=== PATIENT | male | born 1975 | race African-American/Black ===

== ENCOUNTER 2016-03-13 19:02 | Emergency (ER) | payer SELFPAY ==
[~2016-03-13] VITALS: Ht 182.9 cm; Wt 98.0 kg
[~2016-03-13 19:02] MED LIST: IBUP800T23 PO
[2016-03-13 19:04] VITALS: BP 147/75; PULSE 78; RESP 18; TEMP 98.2; O2SAT 100
--- NOTE | 2016-03-13 21:05 | PD ---
HPI Chief Complaint: Dizziness Time Seen by Provider: 21:02 Travel History International Travel<30 days: No Contact w/Intl Traveler<30days: No Traveled to known affect area: No History of Present Illness HPI 41-year-old male presents to the emergency department for evaluation of episode of chest pain dizziness that occurred around 3:30 PM today. He states that he had anterior chest pain that was stabbing in nature. He states the same time, he felt dizzy like the room was spinning around him. No syncope. The patient states he vomited and then laid down. He states that all symptoms resolved at that time. Patient denies any current chest pain or dizziness. He denies any fevers. No shortness of breath. No abdominal pain. No vomiting. No recent travel or surgery. No hemoptysis. No leg edema. No history DVT or PE. He has no chronic medical problems and takes no prescribed medications. PFSH Past Medical History Arthritis: No Asthma: No Autoimmune Disease: No Blood Disorders: No Anxiety: No Depression: No Heart Rhythm Problems: No Cancer: No Cardiovascular Problems: No High Cholesterol: No Chemotherapy: No Chest Pain: No Congestive Heart Failure: No COPD: No Cerebrovascular Accident: No Diabetes: No Diminished Hearing: No Endocrine: No Gastrointestinal Disorders: Yes ([place]STON[place]) GERD: No Glaucoma: No Genitourinary: No Headaches: No Hepatitis: No Hypertension: No Immune Disorder: No Kidney Stones: No Musculoskeletal: No Neurologic: No Psychiatric: No Reproductive: No Respiratory: No Immunizations Current: Yes Migraines: No Myocardial Infarction: No Radiation Therapy: No Renal Failure: No Seizures: No Sickle Cell Disease: No Sleep Apnea: No Thyroid Disease: No Ulcer: No Tetanus Vaccination: > 5 Years Influenza Vaccination: No Past Surgical History Abdominal Surgery: No AICD: No Appendectomy: No Arteriovenous Shunt: No Cardiac Surgery: No Cholecystectomy: Yes Ear Surgery: No Endocrine Surgery: No Eye Surgery: No Genitourinary Surgery: No Gynecologic Surgery: No Insulin Pump: No Joint Replacement: No Oral Surgery: No Pacemaker: No Thoracic Surgery: No Other Surgery: Yes Social History Alcohol Use: Yes (very rare occassional) Tobacco Use: Yes Substance Use: No Allergies-Medications (Allergen,Severity, Reaction): Coded Allergies: No Known Allergies (Unverified , 03/13/16) Reported Meds & Prescriptions Reported Meds & Active Scripts Active No Active Prescriptions or Reported Medications Review of Systems Except as stated in HPI: all other systems reviewed are Neg Physical Exam Narrative GENERAL: Well-developed well-nourished male patient, ambulatory with a steady gait. Afebrile. SKIN: Warm and dry. HEAD: Normocephalic. Atraumatic ENT: Mucosa pink and moist. No erythema or exudates. No uvular edema. No uvular , palatal, or tonsillar deviation. Airway patent. Nasal turbinates appear normal without nasal blood, purulent drainage or septal hematoma. Bilateral tympanic membranes are clear without erythema or perforation. EYES: No scleral icterus. No injection or drainage. NECK: Supple, trachea midline. No JVD or lymphadenopathy. CARDIOVASCULAR: Regular rate and rhythm without murmurs, gallops, or rubs. RESPIRATORY: Breath sounds equal bilaterally. No accessory muscle use. Lungs sounds are clear to auscultation. GASTROINTESTINAL: Abdomen soft, non-tender, nondistended. MUSCULOSKELETAL: No cyanosis, or edema. BACK: Nontender without obvious deformity. No CVA tenderness. Data Data Last Documented VS Vital Signs Date Time Temp Pulse Resp B/P Pulse Ox O2 Delivery O2 Flow Rate FiO2 03/13/16 21:26 63 18 127/68 98 Room Air 03/13/16 19:04 98.2 Orders Electrocardiogram (03/13/16 21:01) Basic Metabolic Panel (Bmp) (03/13/16 21:01) Ckmb (Isoenzyme) Profile (03/13/16 21:01) Complete Blood Count With Diff (03/13/16 21:01) Magnesium (Mg) (03/13/16 21:01) Troponin I (03/13/16 21:01) Chest, Single Ap (03/13/16 21:01) Ecg Monitoring (03/13/16 21:01) Bilateral Bp Monitoring (03/13/16 21:01) Iv Access Insert/Monitor (03/13/16 21:01) Oximetry (03/13/16 21:01) Oxygen Administration (03/13/16 21:01) Sodium Chloride 0.9% Flush (Ns Flush) (03/13/16 21:15) Insulin Human Regular Inj (Novolin R Inj (03/13/16 22:00) CKMB (03/13/16 21:10) CKMB% (03/13/16 21:10) Labs Laboratory Tests Test 03/13/16 21:10 White Blood Count 9.4 TH/MM3 Red Blood Count 4.95 MIL/MM3 Hemoglobin 14.0 GM/DL Hematocrit 41.7 % Mean Corpuscular Volume 84.3 FL Mean Corpuscular Hemoglobin 28.3 PG Mean Corpuscular Hemoglobin 33.5 % Concent Red Cell Distribution Width 14.1 % Platelet Count 220 TH/MM3 Mean Platelet Volume 8.9 FL Neutrophils (%) (Auto) 51.8 % Lymphocytes (%) (Auto) 36.7 % Monocytes (%) (Auto) 7.3 % Eosinophils (%) (Auto) 3.6 % Basophils (%) (Auto) 0.6 % Neutrophils # (Auto) 4.9 TH/MM3 Lymphocytes # (Auto) 3.5 TH/MM3 Monocytes # (Auto) 0.7 TH/MM3 Eosinophils # (Auto) 0.3 TH/MM3 Basophils # (Auto) 0.1 TH/MM3 CBC Comment DIFF FINAL Differential Comment Sodium Level 140 MEQ/L Potassium Level 4.3 MEQ/L Chloride Level 106 MEQ/L Carbon Dioxide Level 26.7 MEQ/L Anion Gap 7 MEQ/L Blood Urea Nitrogen 17 MG/DL Creatinine 1.43 MG/DL Estimat Glomerular Filtration 66 ML/MIN Rate Random Glucose 88 MG/DL Calcium Level 9.0 MG/DL Magnesium Level 2.3 MG/DL Total Creatine Kinase 336 U/L Troponin I LESS THAN 0.02 NG/ML [facility] Medical Decision Making Medical Screen Exam Complete: Yes Emergency Medical Condition: Yes Medical Record Reviewed: Yes Interpretation(s) chest x-ray - CONCLUSION: No acute disease. Differential Diagnosis Vertigo versus anxiety versus chest wall pain versus ACS versus electrolyte abnormality Narrative Course 41-year-old male presents to the emergency department for evaluation of an episode of chest pain dizziness that occurred around 3:30 PM with 1 episode of vomiting. He states all symptoms resolved proximal and 2 hours later. He currently denies any symptoms. EKG shows sinus rhythm, heart rate 67, no acute ST changes. CBC, BMP, magnesium, CK, troponin, chest x-ray ordered and pending. CBC is unremarkable. BMP shows elevated creatinine 1.43. Magnesium is 2.3. CK is 336. Troponin is less than 0.02. Chest x-ray shows no acute disease. Upon reassessment, the patient is still asymptomatic. He states he feels fine at this time and would like to go home. Patient is given strict return precautions. Patient is agreeable. My attending physician, Dr. Landry, agrees with plan and disposition. The patient was discharged in stable condition with instructions, including return instructions and follow up instructions. Diagnosis Primary Impression: Vertigo Referrals: Primary Care Physician call for appointment Patient Instructions: General Instructions, Vertigo (ED) Additional Instructions: Follow-up with your primary care physician. Return to the emergency department for any acute worsening of symptoms. Med/Other Pt SpecificInfo: No Change to Meds Scripts No Active Prescriptions or Reported Meds Disposition: 01 DISCHARGE HOME Condition: Stable Belen Singh JOSE Mar 13, 2016 21:05
[2016-03-13] MEDS ORDERED: SODIUM CHLORIDE 0.9% FLUSH 5 ML FLUSH IVF PRN (21:15)
[2016-03-13 21:26] VITALS: BP 127/68; PULSE 63; RESP 18; O2SAT 98
[2016-03-13 21:49] LABS: AUTOMATED NEUTROPHIL # 4.9 TH/MM3 (1.8-7.7); BASOPHIL # 0.1 TH/MM3 (0-0.2); BASOPHIL % 0.6 % (0.0-2.0); EOSINOPHIL # 0.3 TH/MM3 (0-0.4); EOSINOPHIL % 3.6 % (0.0-4.0); HEMATOCRIT 41.7 % (39.0-51.0); HEMO FLAGS DIFF FINAL; LYMPH % 36.7 % (9.0-44.0); LYMPHOCYTE # 3.5 TH/MM3 (1.0-4.8); MEAN CELL VOLUME 84.3 FL (80.0-100.0); MEAN CORPUSCULAR HEMOGLOBIN 28.3 PG (27.0-34.0); MEAN CORPUSCULAR HGB CONC 33.5 % (32.0-36.0); MONO % 7.3 % (0.0-8.0); NEUT % 51.8 % (16.0-70.0); PLATELET COUNT 220 TH/MM3 (150-450); RED BLOOD COUNT 4.95 MIL/MM3 (4.50-5.90); RED CELL DISTRIBUTION WIDTH 14.1 % (11.6-17.2); WHITE BLOOD COUNT 9.4 TH/MM3 (4.0-11.0)
--- NOTE | 2016-03-13 21:50 | RADRPT ---
EXAM DATE/TIME: 03/13/2016 21:20 [facility] COMPARISON: No previous studies available for comparison. INDICATIONS : Lightheadedness and fever MEDICAL HISTORY : None. SURGICAL HISTORY : None. ENCOUNTER: Initial ACUITY: 1 day PAIN SCORE: 0/10 LOCATION: chest FINDINGS: A single view of the chest demonstrates the lungs to be symmetrically aerated without evidence of mas s, infiltrate or effusion. The cardiomediastinal contours are unremarkable. Osseous structures are intact. CONCLUSION: No acute disease. Dain Moore MD on March 13, 2016 at 21:48 Board Certified Radiologist. This report was verified electronically.
[2016-03-13] MEDS ORDERED: INSULIN HUMAN REGULAR 1,000 UNITS/10 ML VIAL IVP ONE (22:00)
[2016-03-13 22:18] LABS: ANION GAP 7 MEQ/L (5-15); BICARBONATE 26.7 MEQ/L (21.0-32.0); BLOOD UREA NITROGEN 17 MG/DL (7-18); CHLORIDE 106 MEQ/L (98-107); CREATINE KINASE 336 U/L (39-308); GLOMERULAR FILTRATION RATE 66 ML/MIN (>89); MAGNESIUM 2.3 MG/DL (1.5-2.5); SODIUM (NA) 140 MEQ/L (136-145)
[2016-03-13 22:35] LABS: POTASSIUM 4.3 MEQ/L (3.5-5.1)
[2016-03-13 22:44] VITALS: BP 127/69; PULSE 71; RESP 18; O2SAT 98
[2016-03-13 22:48] LABS: CKMB 0.9 NG/ML (0.5-3.6)
--- NOTE | 2016-03-14 11:46 | EKG ---
Date Performed: 03/13/2016 Time Performed: 20:58:45 PTAGE: 41 years EKG: Sinus rhythm NORMAL ECG NO PREVIOUS TRACING DOCTOR: Al Monroe Interpretating Date/Time 03/14/2016 11:43:13
== END 2016-03-13 23:44 | disposition home or self-care (01) ==
LOC: NEPC 19:02
DX: R42 Dizziness and giddiness (principal); R11.10 Vomiting, unspecified; Z87.19 Personal history of other diseases of the digestive system; Z72.0 Tobacco use
CPT/HCPCS: 71010; 80048; 82550; 82552; 83735; 84484; 85025; 93005